=== PATIENT | male | born 1975 | race Caucasian/White ===

== ENCOUNTER 2017-02-25 16:55 | Emergency (ER) | payer OTHER ==
[~2017-02-25] VITALS: Ht 188 cm; Wt 115.7 kg
[~2017-02-25 16:55] MED LIST: CIPRO500 MG PO; ERYTHROMYCIN E3.5 G1 OPHTHALMIC; FLEXERIL PO; IBUPROFEN 600600 M1 PO; IBUPROFEN 800800 MG PO; NAPROSYN500 MG PO; PREDNISONE 20 M20 MG PO; PROBIOTIC1 EAC1 PO; VERAPAMIL ER120 M1 PO
[2017-02-25 17:13] LABS: URINE BILIRUBIN NEGATIVE (Negative); URINE BLOOD NEGATIVE (Negative); URINE COLOR YELLOW; URINE GLUCOSE-RANDOM* NEGATIVE (Negative); URINE KETONES NEGATIVE (Negative); URINE NITRITE NEGATIVE (Negative); URINE PROTEIN (DIPSTICK) NEGATIVE (Negative); URINE SPECIFIC GRAVITY >= 1.030 (1.003-1.035); URINE UROBILINOGEN 0.2 E.U./dl (0.2-1.0)
[2017-02-25 17:25] LABS: CASTS None Seen /LPF (None Seen); CRYSTALS None Seen /LPF (None Seen); SQUAMOUS 4-10 Moderate /LPF (0-3)
[2017-02-25 17:26] LABS: BACTERIA 1-9 Few /HPF (None Seen); URINE RBC None Seen /HPF (0-2); URINE WBC >25 Many /HPF (0-5)
[2017-02-25 17:33] LABS: ABSOLUTE NEUTROPHILS 5.5 thou/uL (1.4-8.2); BASOPHILS 0.5 % (0.0-2.0); EOSINOPHILS 0.6 % (0.0-3.0); HEMATOCRIT 42.1 % (42.0-52.0); HEMOGLOBIN 14.9 gm/dL (14.0-18.0); LYMPHOCYTES 31.4 % (24.0-44.0); MCHC 35.5 g/dL (28.0-37.0); MONOCYTES 7.4 % (1.0-8.0); PLATELET COUNT 317 thou/uL (150-400); POLYS 60.1 % (36.0-66.0); RBC 4.53 mil/uL (4.50-6.00); RDW 13.3 % (10.5-14.5); WBC 9.2 thou/uL (4.0-11.0)
[2017-02-25 17:39] LABS: MANUAL DIFF NO
[2017-02-25] MEDS ORDERED: HYDROCODONE-AP1 EAC6 PO (17:41)
[2017-02-25 17:44] LABS: CALCIUM 9.1 mg/dL (8.5-10.1); POTASSIUM 4.3 mmol/L (3.5-5.1)
[2017-02-25 17:48] VITALS: BP 135/81
[2017-02-25 17:52] LABS: ALBUMIN 4.1 g/dL (3.4-5.0); TOTAL BILIRUBIN 0.2 mg/dL (<0.1-1.0); TOTAL PROTEIN 7.8 g/dL (6.4-8.2)
== END 2017-02-25 18:09 | disposition home or self-care (01) ==
LOC: ER 16:55
PROVIDERS: Physician Assistant
DX: N39.0 Urinary tract infection, site not specified (principal); I10 Essential (primary) hypertension; F17.210 Nicotine dependence, cigarettes, uncomplicated; F10.99 Alcohol use, unspecified with unspecified alcohol-induced disorder; Z11.3 Encounter for screening for infections with a predominantly sexual mode of transmission

== ENCOUNTER 2018-04-01 09:47 | Emergency (ER) | payer OTHER ==
[~2018-04-01] VITALS: Ht 188 cm; Wt 120.2 kg
--- NOTE | ~2018-04-01 | EKG ---
[address] [address] ELECTROCARDIOGRAM REPORT Name: JERRY PAYNE Room #: DEP [facility]#: [id number] Admission: 04/01/18 Attend Phys: Discharge: 04/01/18 Date of : 75 Report #: [id number] THIS REPORT FOR: //name// 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
[~2018-04-01 09:47] MED LIST changes: +BENADRYL A12.5 MG/5 PO; +CARAFATE 1 GM TA1 G1 PO; +HYDROCODONE-AP1 EAC6 PO; +KEFLEX500 M1 PO; +LIDOCAINE VISC100 ML PO; +MOBIC7.5 MG PO; +NORCO 5-325 TA1 EACH PO
[2018-04-01 10:37] LABS: ABSOLUTE NEUTROPHILS 8.2 thou/uL (1.4-8.2); BASOPHILS 0.6 % (0.0-2.0); EOSINOPHILS 0.4 % (0.0-3.0); HEMATOCRIT 41.3 % (42.0-52.0); HEMOGLOBIN 14.6 gm/dL (14.0-18.0); LYMPHOCYTES 18.1 % (24.0-44.0); MCH 32.4 pg (26.0-34.0); MCHC 35.3 g/dL (28.0-37.0); MCV 91.8 fL (80.0-100.0); MONOCYTES 7.9 % (1.0-8.0); PLATELET COUNT 336 thou/uL (150-400); RDW 12.9 % (10.5-14.5); WBC 11.3 thou/uL (4.0-11.0)
[2018-04-01 10:48] LABS: CALCIUM 10.1 mg/dL (8.5-10.1); CREATININE 1.1 mg/dL (0.7-1.3); POTASSIUM 3.7 mmol/L (3.5-5.1)
[2018-04-01 10:54] LABS: ALBUMIN 3.4 g/dL (3.4-5.0); TOTAL BILIRUBIN 0.4 mg/dL (<0.1-1.0)
[2018-04-01] MEDS ORDERED: NORCO 5-325 TA1 EACH PO (12:26)
[2018-04-01] MEDS ORDERED: PEPCID20 MG PO (12:26)
[2018-04-01] MEDS ORDERED: ZOFRAN ODT4 MG PO (12:26)
[2018-04-01] MEDS ORDERED: CARAFATE 1 GM TA1 G1 PO (12:26)
[2018-04-01 13:00] VITALS: BP 147/81
== END 2018-04-01 13:15 | disposition home or self-care (01) ==
LOC: ER 09:47
PROVIDERS: Physician Assistant
DX: K85.90 Acute pancreatitis without necrosis or infection, unspecified (principal); F17.210 Nicotine dependence, cigarettes, uncomplicated; I10 Essential (primary) hypertension

== ENCOUNTER 2018-05-04 09:47 | Emergency (ER) | payer OTHER ==
[~2018-05-04] VITALS: Ht 188 cm; Wt 117.9 kg
--- NOTE | ~2018-05-04 | EKG ---
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
[~2018-05-04 09:47] MED LIST changes: +PEPCID20 MG PO; +ZOFRAN ODT4 MG PO
[2018-05-04] MEDS ORDERED: FLEXERIL PO (11:48)
[2018-05-04] MEDS ORDERED: IBUPROFEN 800800 MG PO (11:48)
== END 2018-05-04 12:00 | disposition home or self-care (01) ==
LOC: ER 09:47
DX: M54.6 Pain in thoracic spine (principal); F17.210 Nicotine dependence, cigarettes, uncomplicated; I10 Essential (primary) hypertension